=== PATIENT | male | born 1975 | race Caucasian/White ===

== ENCOUNTER → 2025-04-05 09:52 | Outpatient (CLI) | payer OTHER, SELFPAY ==
--- NOTE | 2025-04-05 10:03 | DI.RAD.S_ITS ---
PROCEDURE: XR CHEST 2V INDICATIONS: Chronic ischemic heart disease, unspecified TECHNIQUE: 2 views of the chest were acquired. COMPARISON: None. FINDINGS: Heart, mediastinum and pulmonary vascular: Heart is normal in size and configuration. Mediastinum is unremarkable. Pulmonary vascular is normal. Lungs: Clear Pleural spaces: Normal-no effusions or pneumothorax. Bones and soft tissues: Normal IMPRESSION: Normal chest. Dictated by: Fred Moreno M.D. on 04/06/2025 at 11:50 Approved by: Fred Moreno M.D. on 04/06/2025 at 11:51
[2025-04-05 11:09] LABS: Alanine Aminotransferase 20 IU/L (<50); Albumin 4.5 g/dL (3.5-5.0); Albumin Globulin Ratio 1.6 (1.0-2.8); Alkaline Phosphatase 76 U/L (38-126); Appearance Urine UA CLEAR; Aspartate Aminotransferase 31 IU/L (17-59); BUN Creatinine Ratio 21.8 (6-22); Bilirubin Total 0.8 mg/dL (0.2-1.3); Bilirubin Urine UA NEGATIVE (NEGATIVE); Blood Urea Nitrogen 17 mg/dL (9-20); Calcium 9.4 mg/dL (8.4-10.2); Carbon Dioxide 26 mmol/L (22-32); Chloride 105 mmol/L (98-107); Color Urine UA YELLOW; Estimated Glomerular Filt Rate > 60 mL/min (>60); Globulin 2.9 g/dL (1.7-4.1); Glucose 113 mg/dL (70-99); Glucose Urine UA NEGATIVE (Negative); HEMOLYSIS < 15 (0-50); Ketones Urine UA NEGATIVE (NEGATIVE); Leukocyte Esterase Urine UA NEGATIVE (NEGATIVE); Nitrite Urine UA NEGATIVE (Negative); Occult Blood Urine UA NEGATIVE (Negative); Potassium 4.6 mmol/L (3.4-5.1); Protein Urine UA NEGATIVE (Negative); Sodium 139 mmol/L (137-145); Specific Gravity Urine UA 1.015 (1.000-1.035); Total Protein 7.4 g/dL (6.3-8.2); Urobilinogen Urine UA 0.2 E.U./dL (0.2)
[2025-04-05 11:17] LABS: Bacteria Urine Occasional (0-1); Culture Indicated Urine Cult Not Indicated; RBC Urine None Seen (0-5/HPF); Squamous Epithelial Cell Urine 1-5 /HPF (0-5/HPF); Urine Volume 10mL (spun); WBC Urine 0-1/HPF (0-5/HPF)
--- NOTE | 2025-04-05 13:43 | DI.ECHO.S_ITS ---
[facility] : : [address] : : [place] : : [id number] : : Phone: [phone] Echocardiogram Report + + :Name: MAE WHITLEY Study Date: 04/05/2025 Height: 71 in : :[facility] ReadingLocation: Weight: 220 lb : : Gender: Male BSA: 2.2 m2 : :: 1975 Age: 49 yrs BP: 116/81 mmHg: :Reason For Study: ISCHEMIC HEART DISEASE : :Ordering Physician: KATTY, : :DIEGO Performed By: Luis Elaine : :Referring: DIEGO ALANIZ : + + Interpretation Summary 1) Normal left ventricular thickness, size, wall motion, and systolic function (EF 55-60%). 2) Mildly enlarged ventricle with normal function. 3) No significant valvular abnormalities. 4) The ascending aorta is mildly enlarged at 3.8cm. 5) No prior Echo available for comparison. Procedure: A two-dimensional transthoracic echocardiogram with color flow and Doppler was performed. The study quality was technically good. There is no prior echocardiogram noted for this patient. The patient was in normal sinus rhythm during the exam. Left Ventricle: The left ventricle is normal in size. There is normal left ventricular wall thickness. There is no ventricular septal defect visualized. The ejection fraction is estimated to be 55-60%. There are no focal wall motion abnormalities. Diastolic parameters suggest probable normal left ventricular diastolic function and normal filling pressures. Right Ventricle: The right ventricle is mildly dilated. The right ventricular systolic function is normal. Atria: The left atrial size is normal. The right atrium is mild to moderately dilated. There is no Doppler evidence for an interatrial shunt. Mitral Valve: The mitral valve leaflets appear normal. There is no evidence of stenosis, fluttering, or prolapse. There is trace mitral regurgitation. Aortic Valve: The aortic valve is trileaflet. The aortic valve opens well. There is no aortic valve stenosis. No aortic regurgitation is present. Tricuspid Valve: The tricuspid valve leaflets are thin and pliable. There is mild tricuspid regurgitation. The right ventricular systolic pressure is estimated to be at least 29 mmHg based on an estimated right atrial pressure of 3 mm Hg. Pulmonic Valve: The pulmonic valve is not well seen, but is grossly normal. There is trace pulmonic regurgitation. Great Vessels: The aortic root is normal size. The ascending aorta is mildly enlarged. The pulmonary artery is normal size. The IVC is of normal diameter and collapses greater than 50% with a sniff. This suggests a low right atrial pressure of 3 mm Hg. Pericardium/ Pleura There is no pericardial effusion. There is no pleural effusion. MMode/2D Measurements & Calculations LVIDd: 5.1 cm LVOT diam: 2.1 cm LVIDs: 3.6 cm Ao root diam: 3.4 cm FS: 28.8 % asc Aorta Diam: 3.8 cm EPSS: 0.61 cm Ao Arch Diam (Prox Trans): 1.6 cm IVSd: 0.96 cm LVPWd: 0.92 cm LV hopson. diameter/BSA (cm/m^2): 2.3 LV sys. diameter/BSA (cm/m^2): 1.6 LA A2 area: 23.9 cm2 RA long axis: 5.7 cm LA A4 area: 22.3 cm2 RA area: 22.0 cm2 LA length (vol): 6.3 cm RA vol: 72.9 ml LA vol: 72.1 ml RA : 33.2 ml/m2 LA vol index: 32.8 ml/m2 IVC diam: 2.0 cm RVD1 (basal): 4.8 cm RVD2 (mid): 3.9 cm TAPSE: 2.7 cm Doppler Measurements & Calculations Ao V2 max: 137.7 cm/sec LVOT Max Gildardo: 115.7 cm/sec Ao V2 mean: 104.0 cm/sec LV V1 max P.4 mmHg Ao max P.6 mmHg LV V1 VTI: 26.1 cm Ao mean P.6 mmHg BANDAR(I,D): 3.0 cm2 Ao V2 VTI: 30.1 cm BANDAR(V,D): 2.9 cm2 sev ratio: 0.87 BANDAR indexed to BSA (cm^2/m^2): 1.4 MV E max gildardo: 84.9 cm/sec TR max gildardo: 257.4 cm/sec MV A max gildardo: 61.6 cm/sec TR max P.5 mmHg MV E/A: 1.4 PA V2 max: 112.8 cm/sec Med Peak E' Gildardo: 9.2 cm/sec PA V2 mean: 84.0 cm/sec E/E' med: 9.3 PA mean P.0 mmHg Lat Peak E' Gildardo: 12.7 cm/sec PA pr(Accel): 17.3 mmHg E/E' lat: 6.7 E/e' average: 8.0 MV dec time: 0.23 sec SV(LVOT): 90.9 ml Reading Physician:[id number] PM
== END ==
LOC: ECHO 09:56
PROVIDERS: Referring Provider Chiropractor; Visit Provider Chiropractor
DX: I07.1 Rheumatic tricuspid insufficiency (principal); I77.89 Other specified disorders of arteries and arterioles; I25.9 Chronic ischemic heart disease, unspecified; E11.9 Type 2 diabetes mellitus without complications; R05.3 Chronic cough
CPT/HCPCS: 36415; 71046; 80053; 81001; 93306

== ENCOUNTER → 2025-04-05 12:42 | Outpatient (CLI) | payer OTHER, SELFPAY ==
--- NOTE | 2025-04-05 12:58 | EKG_ITS ---
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
== END ==
LOC: RESP 12:44
PROVIDERS: Referring Provider Chiropractor; Visit Provider Chiropractor
DX: R05.9 Cough, unspecified (principal); Z87.891 Personal history of nicotine dependence; I25.9 Chronic ischemic heart disease, unspecified; E11.9 Type 2 diabetes mellitus without complications
CPT/HCPCS: 93005; 94060